=== PATIENT | female | born 1980 | race Hispanic/Latino ===

== ENCOUNTER 2020-07-16 14:01 | Inpatient (IN) | payer OTHER ==
[~2020-07-16] VITALS: Ht 167.6 cm; Wt 62.4 kg
[2020-07-16] MEDS ORDERED: LACTATED RINGERS 1000ML 1,000 ML IV ONE (15:00)
[2020-07-16] MEDS ORDERED: METHYLPREDNISOLONE SOD SUCC 125MG/2ML VIAL IVP ONE (15:00)
[2020-07-16 15:50] LABS: BASOPHILS % (AUTO) 0.7 % (0.0-5.0); EOSINOPHILS % (AUTO) 3.1 % (0.0-8.0); HEMATOCRIT 43.4 % (36-48); LYMPHOCYTES % (AUTO) 8.7 % (21.0-51.0); MEAN CORPUSCULAR HEMOGLOBIN 27.3 pg (27.0-33.0); MEAN CORPUSCULAR HGB CONC 30.6 g/dL (32.0-36.0); MEAN CORPUSCULAR VOLUME 88.9 fL (79-99); MONOCYTES % (AUTO) 10.4 % (3.0-13.0); NEUTROPHILS % (AUTO) 76.6 % (40.0-77.0); PLATELET COUNT (AUTO) 292 K/uL (130-400); RED BLOOD CELL COUNT(AUTO) 4.88 MIL/uL (4.00-5.50); RED CELL DISTRIBUTION WIDTH 16.7 % (11.0-15.5); WHITE BLOOD COUNT (AUTO) 8.3 K/uL (4.8-10.8)
[2020-07-16 16:01] LABS: CREATININE 0.8 mg/dL (0.5-1.5); POTASSIUM 3.9 mmol/L (3.5-5.1)
[2020-07-16] MEDS ORDERED: METHYLPREDNISOLONE SOD SUCC 125MG/2ML VIAL ONE (16:04)
[2020-07-16 16:06] LABS: ALBUMIN 3.5 g/dL (3.5-5.0); BILIRUBIN,TOTAL 0.2 mg/dL (0.2-1.0); TOTAL PROTEIN, SERUM 6.7 g/dL (6.0-8.3)
[2020-07-16] MEDS ORDERED: IPRATROPIUM/ALBUTEROL SULFATE 3 ML SOLUTION IH ONE (16:13)
[2020-07-16] MEDS: IPRATROPIUM/ALBUTEROL SULFATE 3 ML SOLUTION IH ONE ×2 (16:47→16:48)
[2020-07-16] MEDS ORDERED: AZITHROMYCIN 500MG+NS 250ML 250 ML IV SCH (18:00)
[2020-07-16] MEDS ORDERED: GUAIFENESIN-DM 200/20 MG 10 ML PO PRN (19:00)
[2020-07-16] MEDS ORDERED: MAG HYDROX/AL HYDROX/SIMETH ES 30 ML SUSP UDCUP PO PRN (19:00)
[2020-07-16] MEDS ORDERED: LACTULOSE 20 GM/30 ML UDCUP PO PRN (19:00)
[2020-07-16] MEDS ORDERED: HYDROMORPHONE HCL 0.5 MG/0.5 ML ML IV PRN (19:00)
[2020-07-16] MEDS ORDERED: ACETAMINOPHEN-CODEINE 300/30MG TAB PO PRN (19:00)
[2020-07-16] MEDS ORDERED: ACETAMINOPHEN 325 MG TAB PO PRN ×2 (19:00)
[2020-07-16] MEDS ORDERED: ONDANSETRON HCL 4 MG/2 ML VIAL IV PRN (19:00)
[2020-07-16] MEDS ORDERED: GUAIFENESIN-CODEINE 5 ML SYRUP PO PRN (20:00)
[2020-07-16] MEDS: AZITHROMYCIN 500MG+NS 250ML 250 ML IV SCH (20:23)
[2020-07-16] MEDS: CEFTRIAXONE SODIUM 1 GM IV SCH (20:24)
[2020-07-16] MEDS ORDERED: IOHEXOL-350 75 ML VIAL IV ONE (20:33)
[2020-07-16] MEDS: PYRIDOSTIGMINE BROMIDE 60 MG TABLET PO SCH (22:00)
[2020-07-16] MEDS: METHYLPREDNISOLONE SOD SUCC 40MG/ML 1ML IVP SCH (22:19)
[2020-07-16] MEDS: FAMOTIDINE/PF 20 MG/2 ML VIAL IV SCH (22:19)
[2020-07-17] VITALS (8 sets, daily range): BP systolic 94–153; BP diastolic 46–68
[2020-07-17] MEDS: METHYLPREDNISOLONE SOD SUCC 40MG/ML 1ML IVP SCH ×4 (03:05→20:54)
[2020-07-17 06:08] LABS: BASOPHILS % (AUTO) 0.1 % (0.0-5.0); HEMATOCRIT 43.3 % (36-48); LYMPHOCYTES % (AUTO) 5.3 % (21.0-51.0); MEAN CORPUSCULAR HEMOGLOBIN 26.3 pg (27.0-33.0); MEAN CORPUSCULAR HGB CONC 30.5 g/dL (32.0-36.0); MEAN CORPUSCULAR VOLUME 86.4 fL (79-99); MONOCYTES % (AUTO) 0.8 % (3.0-13.0); PLATELET COUNT (AUTO) 300 K/uL (130-400); RED BLOOD CELL COUNT(AUTO) 5.01 MIL/uL (4.00-5.50); WHITE BLOOD COUNT (AUTO) 7.8 K/uL (4.8-10.8)
[2020-07-17 06:14] LABS: CREATININE 0.4 mg/dL (0.5-1.5); POTASSIUM 4.7 mmol/L (3.5-5.1)
[2020-07-17 06:32] LABS: ALBUMIN 3.4 g/dL (3.5-5.0); BILIRUBIN,TOTAL 0.2 mg/dL (0.2-1.0); TOTAL PROTEIN, SERUM 6.8 g/dL (6.0-8.3)
[2020-07-17 08:50] LABS: APPEARANCE,URINE Clear (CLEAR); BILIRUBIN,URINE Negative (NEGATIVE); COLOR,URINE Yellow (YELLOW); GLUCOSE, URINE (UA) Negative (NEGATIVE); KETONES,URINE 15 mg/dL (NEGATIVE); LEUKOCYTE ESTERASE ,URINE Negative (NEGATIVE); NITRATE,URINE Negative (NEGATIVE); OCCULT BLOOD,URINE Negative (NEGATIVE); PH,URINE 5.5 (5.0-8.0); PROTEIN,URINE Trace mg/dL (NEGATIVE); UROBILINOGEN,URINE 0.2 mg/dL (0.2-1.0)
[2020-07-17] MEDS: ENOXAPARIN SODIUM 40 MG/0.4 ML SYRINGE SQ SCH (09:00)
[2020-07-17] MEDS ORDERED: CEFTRIAXONE SODIUM 1 GM IV SCH (09:00)
[2020-07-17] MEDS: FAMOTIDINE/PF 20 MG/2 ML VIAL IV SCH ×2 (09:05→22:21)
[2020-07-17 09:14] LABS: BACTERIA,URINE Rare /HPF (None Seen); RBC,URINE 0-1 /HPF (0-1); SQUAMOUS EPITHELIAL CELL,UR Rare /HPF (0-2); WBC,URINE 0-1 /HPF (0-1)
[2020-07-17] MEDS ORDERED: IPRATROPIUM/ALBUTEROL SULFATE 3 ML SOLUTION IH PRN (10:45)
[2020-07-17] MEDS: ALBUTEROL SULFATE 0.083% 2.5 MG/3 ML INH IH PRN ×2 (11:36→19:40)
[2020-07-17] MEDS: AZITHROMYCIN 500MG+NS 250ML 250 ML IV SCH (20:13)
[2020-07-17] MEDS: CEFTRIAXONE SODIUM 1 GM IV SCH (20:13)
[2020-07-17] MEDS: PYRIDOSTIGMINE BROMIDE 60 MG TABLET PO SCH (22:21)
[2020-07-18 00:05] VITALS: BP 101/50
[2020-07-18] MEDS ORDERED: LACTATED RINGERS 1000ML 1,000 ML IV ONE (00:44)
[2020-07-18] MEDS ORDERED: PYRI180T PO (01:55)
[2020-07-18] MEDS ORDERED: ESCI-8 PO (01:55)
[2020-07-18] MEDS: METHYLPREDNISOLONE SOD SUCC 40MG/ML 1ML IVP SCH (02:50)
[2020-07-18 03:22] VITALS: BP 98/51
[2020-07-18 04:50] LABS: BASOPHILS % (AUTO) 0.1 % (0.0-5.0); HEMATOCRIT 40.2 % (36-48); LYMPHOCYTES % (AUTO) 3.4 % (21.0-51.0); MEAN CORPUSCULAR HEMOGLOBIN 27.8 pg (27.0-33.0); MEAN CORPUSCULAR HGB CONC 31.8 g/dL (32.0-36.0); MEAN CORPUSCULAR VOLUME 87.2 fL (79-99); MONOCYTES % (AUTO) 1.6 % (3.0-13.0); NEUTROPHILS % (AUTO) 94.3 % (40.0-77.0); PLATELET COUNT (AUTO) 295 K/uL (130-400); RED BLOOD CELL COUNT(AUTO) 4.61 MIL/uL (4.00-5.50); RED CELL DISTRIBUTION WIDTH 17.3 % (11.0-15.5); WHITE BLOOD COUNT (AUTO) 19.5 K/uL (4.8-10.8)
[2020-07-18 04:57] LABS: CREATININE 0.6 mg/dL (0.5-1.5); POTASSIUM 4.4 mmol/L (3.5-5.1)
[2020-07-18 07:00] VITALS: BP 97/63
[2020-07-18] MEDS ORDERED: CITALOPRAM 20 MG TABLET PO SCH (09:00)
[2020-07-18] MEDS ORDERED: PYRIDOSTIGMINE BROMIDE 60 MG TABLET PO SCH (09:00)
[2020-07-18] MEDS: ENOXAPARIN SODIUM 40 MG/0.4 ML SYRINGE SQ SCH (09:00)
[2020-07-18] MEDS: FAMOTIDINE/PF 20 MG/2 ML VIAL IV SCH (09:00)
[2020-07-18] MEDS ORDERED: CEFDINIR 250MG/5ML 60ML BOTTLE PO SCH (11:00)
[2020-07-18 11:39] VITALS: BP 95/50
[2020-07-18] MEDS ORDERED: CEFD300C3 PO (12:31)
[2020-07-18 16:42] VITALS: BP 90/57
== END 2020-07-18 18:30 | disposition home or self-care (01) | DRG 202 ==
LOC: EDH 14:01 → EDHIP 18:55 → 3AH 07-17 21:14
PROVIDERS: ADMIT Family Medicine; ATTEND Family Medicine
DX: J20.9 Acute bronchitis, unspecified (principal); J18.9 Pneumonia, unspecified organism; J96.11 Chronic respiratory failure with hypoxia; C37 Malignant neoplasm of thymus; C78.01 Secondary malignant neoplasm of right lung; G70.00 Myasthenia gravis without (acute) exacerbation; F32.9 Major depressive disorder, single episode, unspecified; Z90.710 Acquired absence of both cervix and uterus; Z90.49 Acquired absence of other specified parts of digestive tract; Z20.822 Contact with and (suspected) exposure to COVID-19
CPT/HCPCS: 36415; 71046; 71275; 80048; 80053; 81001; 82948; 84145; 85025; 85378; 87071; 87205; 87635; 87804; 87880; 93005; 94640; 94664; C9803; G0378; J0456; J0696; J1650; J2920; J2930; J3490; J7120; Q9967